=== PATIENT | female | born 1980 ===

== ENCOUNTER 2019-04-05 20:18 | Emergency (ER) | payer BC ==
--- NOTE | 2019-04-05 20:36 | Emergency Department Record ---
History of Present Illness - General Chief complaint: OB/Uterine Contract/ Stated complaint: PREG AND BLEEDING Time Seen by Provider: 04/05/19 20:31 Source: Patient Mode of Arrival: Ambulatory Limitations: No limitations - History of Present Illness Initial comments: 38 yo female presents with a concern that she is . She states she was due for her current menstrual cycle but it was a few days late. She took a home test and it was positive. She has subsequently developed vaginal bleeding and cramps that is consistent with her typical menstrual cycle. She has had 4 prior pregnancies. No complications. She has not had early physical symptoms of such as nausea or vomiting. Her cramps are mild and similar to a menstrual cycle. MD Complaint: Vaginal bleeding -: Hour(s) Location: Abdomen Radiation: None Severity: Mild Quality: Cramping Consistency: Intermittent Improves with: None Worsens with: None Associated symptoms: Abdominal pain No complications No complications LMP (females 10-50): This week - Related Data : 5 Para: 4 Home Medications Medication Instructions Recorded Confirmed Last Taken No Home Med [NO HOME MEDS] 04/05/19 04/05/19 Unknown Allergies Allergy/AdvReac Type Severity Reaction Status Date / Time No Known Drug Allergies Allergy Verified 04/05/19 20:36 Review of Systems Constitutional: Denies: Chills, Fever, Malaise, Weakness Eyes: Denies: Eye discharge, Vision change ENT: Denies: Congestion, Throat pain Respiratory: Denies: Cough, Dyspnea Cardiovascular: Denies: Chest pain Endocrine: Denies: Fatigue Gastrointestinal: Reports: Abdominal pain. Denies: Diarrhea, Nausea, Vomiting Genitourinary: Reports: Abnormal menses. Denies: Discharge, Dyspareunia, Dysuria, Frequency, Hematuria, Incontinence, Retention, Urgency Musculoskeletal: Reports: Back pain (mld cramping). Denies: Arthralgia, Joint swelling, Myalgia Skin: Denies: Bruising, Change in color, Rash Neurological: Denies: Confusion, Headache Psychiatric: Denies: Anxiety Hematological/Lymphatic: Denies: Easy bleeding, Easy bruising Physical Exam - General General Appearance: Alert, Oriented x3, Cooperative, No acute distress Limitations: No limitations - Head Head exam: Atraumatic, Normal inspection - Eye Eye exam: Normal appearance, PERRL. negative: Conjunctival injection, Scleral icterus - ENT ENT exam: Normal exam, Mucous membranes moist Ear exam: Normal external inspection Nasal Exam: Normal inspection Mouth exam: Normal external inspection - Neck Neck exam: Normal inspection - Respiratory Respiratory exam: Normal lung sounds bilaterally. negative: Respiratory distress - Cardiovascular Cardiovascular Exam: Regular rate, Normal rhythm, Normal heart sounds - GI/Abdominal GI/Abdominal exam: Soft. negative: Distended, Guarding, Rebound, Rigid, Tenderness - Rectal Rectal exam: Deferred - exam: Vaginal bleeding. negative: Abnormal external exam, Adnexal mass (L), Adnexal mass (R), Adnexal tenderness (L), Adnexal tenderness (R), cervical motion tenderness, Vaginal discharge, Vaginal erythema - Extremities Extremities exam: Normal inspection. negative: Pedal edema - Back Back exam: Denies: CVA tenderness (R), CVA tenderness (L) - Neurological Neurological exam: Alert, Oriented X3 - Psychiatric Psychiatric exam: Normal affect, Normal mood. negative: Agitated, Anxious - Skin Skin exam: Dry, Intact, Normal color, Warm Course Vital Signs 04/05/19 20:26 Temperature 98.5 F Pulse Rate [ 85 Pulse Ox Probe] Respiratory 20 Rate Blood Pressure 132/88 [Left Arm] Pulse Ox 97 - Reevaluation(s) Reevaluation #1: 04/05/19 20:50 The CBC was reviewed No acute changes. 04/05/19 21:07 The Total HCG is 36.25 Pelvic examination was completed. 04/05/19 21:36 The patient does not have any pain We have discussed the results This is likely a miscarriage. I explained that ectopic is possible but less likely The plan is for a repeat HCG in 48 hours She was provided a lab ordered with copies to me and her PCP We discussed precautions for immediate evaluation in the next 1-3 days Medical Decision Making - Lab Data Result diagrams: 04/05/19 20:40 Disposition Disposition: Discharge Clinical Impression: Threatened Disposition: Home, Self-Care Condition: (1) Good Instructions: Threatened Miscarriage (ED) Additional Instructions: Return immediately if have severe pain, fever, bleeding You HCG hormone level is 36.25 You will need a repeat level in two days Repeat your hormone level in the outpatient lab on Tuesday Forms: Patient Portal Access Time of Disposition: 21:37 Quality - Quality Measures Quality Measures: N/A, (14-50yr) - : US Determination Quality Measure: Measure #254: US Determination of Location US Determination of Location: Trans-Abdominal or Trans-Vaginal US NOT Performed w/Reasons [G8807] Reason for No US: Other (No available at [facility]) - : Rhogam Quality Measure: Measure #255: Rhogam for Rh-Negative Women ICD10 Codes Entered: Yes Rhogam for Rh-Negative Women at Risk: Rh-immunoglobulin NOT Ordered [G8811] - Blood Pressure Screening Does Patient Have Any of the Following: No Blood Pressure Classification: Pre-Hypertensive BP Reading Systolic Measurement: 132 Diastolic Measurement: 88 Screening for High Blood Pressure: < Pre-Hypertensive BP, F/U Documented > [G8950] Pre-Hypertensive Follow-up Interventions: Referral to alternative/primary care provider.
[2019-04-05 20:47] LABS: ABSOLUTE NEUTROPHIL COUNT 7.03; BASO % 0.2 % (0-6); EOS % 2.1 % (0-6); HEMATOCRIT 39.4 % (35.0-47.0); HEMOGLOBIN 12.2 gm/dl (11.6-16.0); LYMPH % 33.6 % (16-45); MEAN CELL VOLUME 93.8 fl (81-97); MEAN PLATELET VOLUME 8.8 fl (7.4-10.4); MONO % 10.1 % (0-9); PLATELET COUNT 404 K/uL (130-400); RED CELL DISTRIBUTION WIDTH 13.7 % (11.5-14.5)
== END 2019-04-05 21:59 | disposition home or self-care (01) ==
LOC: ER 20:18
DX: O20.0 Threatened abortion (principal); Z3A.00 Weeks of gestation of pregnancy not specified
CPT/HCPCS: 84702; 85025; 86901; 87210; 99284